=== PATIENT | female | born 1995 | race Caucasian/White ===

== ENCOUNTER 2017-03-09 13:48 | Emergency (ER) | payer OTHER | END 2017-03-09 14:19 | disposition home or self-care (01) | LOC: ER 13:48 | DX: S50.12XA Contusion of left forearm, initial encounter (principal); Z88.8 Allergy status to other drugs, medicaments and biological substances; W22.8XXA Striking against or struck by other objects, initial encounter; Y92.009 Unspecified place in unspecified non-institutional (private) residence as the place of occurrence of the external cause ==